=== PATIENT | female | born 1995 | race Caucasian/White ===

== ENCOUNTER 2020-04-28 23:36 | Inpatient (IN) | payer MEDICAID ==
[~2020-04-28] VITALS: Ht 157.5 cm; Wt 47.2 kg
[2020-04-29] MEDS ORDERED: MIDO5TAB29 GT (00:03)
[2020-04-29] MEDS ORDERED: VALP250C3 GT (00:03)
[2020-04-29] MEDS ORDERED: TOPI100T37 GT (00:03)
[2020-04-29] MEDS ORDERED: FAMO-135 GT (00:03)
[2020-04-29] MEDS ORDERED: FLUD.1 GT (00:03)
[2020-04-29] MEDS ORDERED: 0.9% SODIUM CHLORIDE 10 ML SYRINGE IVP PRN (00:45)
[2020-04-29] MEDS ORDERED: ACETAMINOPHEN 325 MG TABLET PO PRN ×2 (00:45→03:15)
[2020-04-29] MEDS ORDERED: ONDANSETRON HCL 4 MG/2 ML VIAL IVP PRN ×3 (00:45→14:00)
[2020-04-29 02:30] LABS: BASOPHILS % (AUTO) 0.4 % (0.0-2.0); EOSINOPHILS % (AUTO) 0.4 % (1.0-6.0); HEMATOCRIT 38.7 % (36-46); HEMOGLOBIN 13.3 g/dL (12.0-16.0); LYMPHOCYTES # (AUTO) 3.5 K/uL (1.0-4.8); LYMPHOCYTES % (AUTO) 43.5 % (22.0-44.0); MEAN CORPUSCULAR HEMOGLOBIN 32.2 pg (26.0-34.0); MEAN CORPUSCULAR HGB CONC 34.4 G/dL (31.0-37.0); MEAN CORPUSCULAR VOLUME 93 fL (80-100); MONOCYTES # (AUTO) 0.6 K/uL (0.1-1.0); MONOCYTES % (AUTO) 6.8 % (2.0-9.0); NEUTROPHILS % (AUTO) 48.9 % (40.0-70.0); PLATELET COUNT (AUTO) 231 K/uL (150-450); RED BLOOD CELL COUNT(AUTO) 4.15 MIL/uL (4.00-5.20)
[2020-04-29 02:43] LABS: PROTHROMBIN TIME 10.6 SEC (9.4-11.6)
[2020-04-29 02:44] LABS: ANION GAP 12 mmol/L (8-16); CALCIUM, TOTAL 9.1 mg/dL (8.8-10.5); CARBON DIOXIDE 23 mmol/L (22-29); CHLORIDE 105 mmol/L (98-107); CREATININE 0.61 mg/dL (0.60-1.30); GLOMERULAR FILTR. RATE CALC > 60 mL/min (>60); GLUCOSE,RANDOM 94 mg/dL (70-110); POTASSIUM 3.8 mmol/L (3.5-5.1); SODIUM SERUM 140 mmol/L (136-145); UREA NITROGEN, BLOOD 14 mg/dL (7-18)
[2020-04-29 02:57] LABS: ALANINE AMINOTRANSFERASE 67 U/L (12-78); ALBUMIN 3.4 g/dL (3.4-5.0); ALKALINE PHOSPHATASE 75 U/L (46-116); ASPARTATE AMINOTRANSFERASE 34 U/L (15-37); BILIRUBIN,TOTAL 0.2 mg/dL (0.1-1.0); CREATINE KINASE, TOTAL ONLY 32 U/L (26-192); HCG,QUANTITATIVE < 1 mIU/mL (0-6); TOTAL PROTEIN, SERUM 7.1 g/dL (6.4-8.2); VALPROIC ACID 87 mcg/mL (50-100)
[2020-04-29 03:02] LABS: B-TYPE NATRIURETIC PEPTIDE 5 pg/mL (0-100)
[2020-04-29] MEDS ORDERED: LORazepam 2 MG/ML VIAL IVP ONE (03:15)
[2020-04-29] MEDS ORDERED: LevETIRAcetam 500 MG in DEXTROSE 5%-WATER 100 ML IV ONE (03:15)
[2020-04-29] MEDS ORDERED: LevETIRAcetam 1,000 MG in DEXTROSE 5%-WATER 100 ML IV ONE (07:00)
[2020-04-29] MEDS ORDERED: DIVALPROEX SODIUM 125 MG DR CAPSULE GT ONE (09:00)
[2020-04-29] MEDS ORDERED: TOPIRAMATE 100 MG TABLET GT ONE (09:00)
[2020-04-29 11:06] LABS: APPEARANCE,URINE CLEAR (CLEAR); BILIRUBIN,URINE NEGATIVE (NEGATIVE); GLUCOSE, URINE (UA) NEGATIVE (NEGATIVE); KETONES,URINE NEGATIVE (NEGATIVE); LEUKOCYTE ESTERASE ,URINE NEGATIVE (NEGATIVE); NITRATE,URINE NEGATIVE (NEGATIVE); OCCULT BLOOD,URINE NEGATIVE (NEGATIVE); PH,URINE 6.5 (5.0-8.0); PROTEIN,URINE NEGATIVE (NEGATIVE)
[2020-04-29 11:40] VITALS: BP 99/69
[2020-04-29] MEDS ORDERED: VALPROIC ACID 250 MG CAPSULE GT SCH (14:00)
[2020-04-29] MEDS ORDERED: ACETAMINOPHEN 325 MG TABLET GT PRN (14:00)
[2020-04-29] MEDS ORDERED: IPRATROPIUM BROMIDE 0.5 MG/2.5 ML NEB SOLUTION NEB PRN (14:00)
[2020-04-29] MEDS ORDERED: BISACODYL 10 MG RECTAL RECTAL SUPPOSITORY PR PRN (14:00)
[2020-04-29] MEDS ORDERED: MAGNESIUM HYDROXIDE SUSPENSION 30 ML UDCUP GT PRN (14:00)
[2020-04-29] MEDS ORDERED: ALBUTEROL SULFATE 2.5 MG/0.5 ML NEB SOLUTION NEB PRN (14:00)
[2020-04-29] MEDS ORDERED: MORPHINE SULFATE 2 MG/ML SYRINGE IVP PRN (14:00)
[2020-04-29] MEDS: FLUDROCORTISONE ACETATE 0.1 MG TABLET GT SCH (15:42)
[2020-04-29] MEDS: FAMOTIDINE 20 MG TABLET GT SCH (15:43)
[2020-04-29] MEDS: TOPIRAMATE 100 MG TABLET GT SCH ×2 (15:44→20:47)
[2020-04-29] MEDS: HEPARIN SODIUM,PORCINE 5,000 UNITS/ML VIAL SQ SCH (15:44)
[2020-04-29] MEDS: MIDODRINE HCL 5 MG TABLET GT SCH ×2 (15:44→20:47)
[2020-04-29 15:46] VITALS: BP 99/65
[2020-04-29 20:42] VITALS: BP 95/62
[2020-04-29] MEDS: VALPROIC ACID 250 MG/5 ML SYRUP UDCUP GT SCH (20:47)
[2020-04-29 23:58] VITALS: BP 113/82
[2020-04-30] MEDS: HEPARIN SODIUM,PORCINE 5,000 UNITS/ML VIAL SQ SCH ×3 (00:51→16:46)
[2020-04-30 05:00] VITALS: BP 115/75
[2020-04-30 07:36] VITALS: BP 110/67
[2020-04-30] MEDS: VALPROIC ACID 250 MG/5 ML SYRUP UDCUP GT SCH ×2 (08:56→20:08)
[2020-04-30] MEDS: FAMOTIDINE 20 MG TABLET GT SCH (08:56)
[2020-04-30] MEDS: FLUDROCORTISONE ACETATE 0.1 MG TABLET GT SCH (08:56)
[2020-04-30] MEDS: MIDODRINE HCL 5 MG TABLET GT SCH ×3 (08:57→20:08)
[2020-04-30] MEDS: TOPIRAMATE 100 MG TABLET GT SCH ×2 (08:57→20:08)
[2020-04-30 11:26] VITALS: BP 107/64
[2020-04-30 14:51] VITALS: BP 98/66
[2020-04-30 20:06] VITALS: BP 98/60
[2020-05-01 00:17] VITALS: BP 103/62
[2020-05-01] MEDS: HEPARIN SODIUM,PORCINE 5,000 UNITS/ML VIAL SQ SCH ×2 (00:20→08:29)
[2020-05-01 05:29] VITALS: BP 95/41
[2020-05-01 07:26] VITALS: BP 99/60
[2020-05-01] MEDS: FAMOTIDINE 20 MG TABLET GT SCH (08:29)
[2020-05-01] MEDS: FLUDROCORTISONE ACETATE 0.1 MG TABLET GT SCH (08:31)
[2020-05-01] MEDS: TOPIRAMATE 100 MG TABLET GT SCH (08:32)
[2020-05-01] MEDS: MIDODRINE HCL 5 MG TABLET GT SCH (08:32)
[2020-05-01] MEDS: VALPROIC ACID 250 MG/5 ML SYRUP UDCUP GT SCH (08:33)
[2020-05-01] MEDS ORDERED: LevETIRAcetam 100 MG/ML 5 ML SOLUTION UDCUP GT SCH (10:15)
[2020-05-01 11:14] VITALS: BP 111/64
[2020-05-01] MEDS ORDERED: HEPA500018 SQ (12:18)
[2020-05-01] MEDS ORDERED: LEVE500T53 PO (12:19)
[2020-05-01] MEDS ORDERED: VALP250C48 PO ×2 (12:20→12:21)
[2020-05-01] MEDS ORDERED: ACET-2247 PO (12:22)
[2020-05-01] MEDS ORDERED: AUD NEB (12:24)
[2020-05-01] MEDS ORDERED: BISA10SU11 PR (12:25)
[2020-05-01] MEDS ORDERED: MOM30 PO (12:27)
[2020-05-01] MEDS ORDERED: IPRNEB NEB (12:27)
[2020-05-02] MEDS ORDERED: VALPROIC ACID 250 MG/5 ML SYRUP UDCUP GT SCH (08:00)
== END 2020-05-01 14:40 | DRG 53 ==
LOC: EMS 23:37 → 5S 04-29 09:38
PROVIDERS: ADMIT Hospitalist; ATTEND Hospitalist
DX: G40.401 Other generalized epilepsy and epileptic syndromes, not intractable, with status epilepticus (principal); E43 Unspecified severe protein-calorie malnutrition; R62.50 Unspecified lack of expected normal physiological development in childhood; Z68.1 Body mass index [BMI] 19.9 or less, adult; R13.10 Dysphagia, unspecified
CPT/HCPCS: 70450; 87081; 93005; 96365; 99291; J0712; J1644; J7060

== ENCOUNTER 2024-03-16 16:30 | Inpatient (IN) | payer OTHER ==
[~2024-03-16] VITALS: Ht 154.9 cm; Wt 60.5 kg
[2024-03-16] MEDS: DOCUSATE SODIUM 100 MG CAPSULE PO SCH (03:19)
[2024-03-16] MEDS: VALPROIC ACID 250 MG/5 ML SOLUTION UDCUP GT SCH (03:19)
[2024-03-16] MEDS: TOPIRAMATE 100 MG TABLET GT SCH (03:19)
[2024-03-16] MEDS: LevETIRAcetam 100 MG/ML 5 ML SOLUTION UDCUP PEG SCH (03:19)
[~2024-03-16 16:30] MED LIST: ACET-2247 GT; DOCU-385 GT; FAMO20 GT; LACT10SO10 GT; LEVE500S10 PEG; MAGN-169 GT; PRAV10TA39 GT; SCOP1PAT12 TD; TOPI100T37 GT; VALP250S23 GT; [UNRECOGNIZED DRUG - CODE] GT
[2024-03-16 17:53] LABS: BASOPHILS % (AUTO) 0.5 % (0.0-2.0); EOSINOPHILS % (AUTO) 0.2 % (1.0-6.0); HEMATOCRIT 41.6 % (36-46); HEMOGLOBIN 13.7 g/dL (12.0-16.0); LYMPHOCYTES # (AUTO) 4.3 K/uL (1.0-4.8); LYMPHOCYTES % (AUTO) 27.9 % (22.0-44.0); MEAN CORPUSCULAR HEMOGLOBIN 30.9 pg (26.0-34.0); MEAN CORPUSCULAR HGB CONC 32.9 G/dL (31.0-37.0); MEAN CORPUSCULAR VOLUME 94 fL (80-100); MONOCYTES # (AUTO) 1.5 K/uL (0.1-1.0); MONOCYTES % (AUTO) 9.4 % (2.0-9.0); NEUTROPHILS # (AUTO) 9.6 K/uL (1.8-7.7); PLATELET COUNT (AUTO) 392 K/uL (150-450); RED BLOOD CELL COUNT(AUTO) 4.44 MIL/uL (4.00-5.20); RED CELL DISTRIBUTION WIDTH 13.5 % (11.5-14.5); WHITE BLOOD COUNT (AUTO) 15.5 K/uL (4.5-11.0)
[2024-03-16 18:03] LABS: ANION GAP 15 mmol/L (8-16); CALCIUM, TOTAL 9.3 mg/dL (8.8-10.5); CARBON DIOXIDE 21 mmol/L (22-29); CHLORIDE 105 mmol/L (98-107); GLOMERULAR FILTR. RATE CALC > 60 mL/min (>60); GLUCOSE,RANDOM 121 mg/dL (70-110); POTASSIUM 3.7 mmol/L (3.5-5.1); SODIUM SERUM 141 mmol/L (136-145); UREA NITROGEN, BLOOD 9 mg/dL (7-18)
[2024-03-16 18:08] LABS: ALANINE AMINOTRANSFERASE 91 U/L (12-78); ALBUMIN 2.8 g/dL (3.4-5.0); ALKALINE PHOSPHATASE 155 U/L (46-116); ASPARTATE AMINOTRANSFERASE 20 U/L (15-37); BILIRUBIN,TOTAL 0.5 mg/dL (0.1-1.0); TOTAL PROTEIN, SERUM 8.2 g/dL (6.4-8.2)
[2024-03-16 18:10] LABS: LIPASE 708 U/L (16-77)
[2024-03-16 18:11] LABS: LACTIC ACID 1.6 mmol/L (0.4-2.0)
[2024-03-16] MEDS: ACETAMINOPHEN 160 MG/5 ML SUSPENSION UDCUP GT ONE (18:33)
[2024-03-16] MEDS ORDERED: BISACODYL 10 MG RECTAL RECTAL SUPPOSITORY PR PRN (20:45)
[2024-03-16] MEDS ORDERED: MAGNESIUM HYDROXIDE SUSPENSION 30 ML UDCUP PO PRN (20:45)
[2024-03-16] MEDS ORDERED: ZOLPIDEM TARTRATE 5 MG TABLET PO PRN (20:45)
[2024-03-16] MEDS ORDERED: ACETAMINOPHEN 325 MG TABLET PO PRN (20:45)
[2024-03-16] MEDS: CefTRIAXone 1 GM/DEXTROSE 50 ML IV ONE (20:48)
[2024-03-16] MEDS: SODIUM CHLORIDE 0.9% 1,500 ML IV ONE (20:48)
[2024-03-16 22:24] LABS: APPEARANCE,URINE CLEAR (CLEAR); BILIRUBIN,URINE NEGATIVE (NEGATIVE); COLOR,URINE YELLOW (YELLOW); GLUCOSE, URINE (UA) NEGATIVE (NEGATIVE); KETONES,URINE NEGATIVE (NEGATIVE); LEUKOCYTE ESTERASE ,URINE NEGATIVE (NEGATIVE); NITRATE,URINE NEGATIVE (NEGATIVE); OCCULT BLOOD,URINE NEGATIVE (NEGATIVE); PH,URINE 7.5 (5.0-8.0); PROTEIN,URINE NEGATIVE (NEGATIVE); UROBILINOGEN,URINE <=1.0 mg/dL (<=1.0)
[2024-03-17] MEDS: HEPARIN SODIUM,PORCINE 5,000 UNITS/ML VIAL SQ SCH (00:35)
[2024-03-17] MEDS: SODIUM CHLORIDE 0.9% 1,000 ML IV ONE (00:35)
[2024-03-17 03:00] VITALS: BP 105/55; PULSE 118; RESP 17; TEMP 98.9
[2024-03-17 07:27] VITALS: BP 127/76; PULSE 117; RESP 18; TEMP 97.7
[2024-03-17 08:06] LABS: BASOPHILS % (AUTO) 0.4 % (0.0-2.0); EOSINOPHILS % (AUTO) 1.2 % (1.0-6.0); HEMATOCRIT 41.1 % (36-46); HEMOGLOBIN 13.5 g/dL (12.0-16.0); LYMPHOCYTES # (AUTO) 3.9 K/uL (1.0-4.8); LYMPHOCYTES % (AUTO) 31.7 % (22.0-44.0); MEAN CORPUSCULAR HEMOGLOBIN 30.7 pg (26.0-34.0); MEAN CORPUSCULAR HGB CONC 32.8 G/dL (31.0-37.0); MEAN CORPUSCULAR VOLUME 94 fL (80-100); MONOCYTES % (AUTO) 7.8 % (2.0-9.0); NEUTROPHILS # (AUTO) 7.2 K/uL (1.8-7.7); NEUTROPHILS % (AUTO) 58.9 % (40.0-70.0); PLATELET COUNT (AUTO) 364 K/uL (150-450); RED CELL DISTRIBUTION WIDTH 13.8 % (11.5-14.5); WHITE BLOOD COUNT (AUTO) 12.2 K/uL (4.5-11.0)
[2024-03-17 08:18] LABS: ANION GAP 14 mmol/L (8-16); CARBON DIOXIDE 21 mmol/L (22-29); CHLORIDE 105 mmol/L (98-107); CREATININE 0.49 mg/dL (0.60-1.30); GLOMERULAR FILTR. RATE CALC > 60 mL/min (>60); GLUCOSE,RANDOM 113 mg/dL (70-110); POTASSIUM 3.6 mmol/L (3.5-5.1); SODIUM SERUM 140 mmol/L (136-145); UREA NITROGEN, BLOOD 9 mg/dL (7-18)
[2024-03-17 08:26] LABS: CALCIUM, TOTAL 9.2 mg/dL (8.8-10.5); LIPASE 605 U/L (16-77)
[2024-03-17] MEDS: LACTULOSE 20 GM/30 ML SOLUTION UDCUP GT SCH (10:16)
[2024-03-17] MEDS: PRAVASTATIN SODIUM 10 MG TABLET GT SCH (10:19)
[2024-03-17] MEDS: PANTOPRAZOLE SODIUM 40 MG DR TABLET PO SCH (10:21)
[2024-03-17 12:00] VITALS: BP 118/70; PULSE 118; RESP 18; TEMP 98
[2024-03-17 15:21] VITALS: BP 114/82; PULSE 102; RESP 18; TEMP 98
[2024-03-17 20:07] VITALS: BP 113/70; PULSE 101; RESP 18; TEMP 98.3
[2024-03-17 23:38] VITALS: BP 117/70; PULSE 100; RESP 19; TEMP 98
[2024-03-18 04:00] VITALS: BP 122/59; PULSE 91; RESP 16; TEMP 97.4
[2024-03-18] MEDS ORDERED: SODIUM CHLORIDE 0.9% 500 ML IV ONE (07:05)
[2024-03-18 07:51] LABS: BASOPHILS % (AUTO) 0.4 % (0.0-2.0); EOSINOPHILS % (AUTO) 1.3 % (1.0-6.0); HEMOGLOBIN 13.2 g/dL (12.0-16.0); LYMPHOCYTES # (AUTO) 3.4 K/uL (1.0-4.8); MEAN CORPUSCULAR HGB CONC 33.1 G/dL (31.0-37.0); MEAN CORPUSCULAR VOLUME 94 fL (80-100); MONOCYTES # (AUTO) 0.8 K/uL (0.1-1.0); MONOCYTES % (AUTO) 7.2 % (2.0-9.0); NEUTROPHILS # (AUTO) 6.2 K/uL (1.8-7.7); NEUTROPHILS % (AUTO) 59.1 % (40.0-70.0); PLATELET COUNT (AUTO) 354 K/uL (150-450); RED BLOOD CELL COUNT(AUTO) 4.27 MIL/uL (4.00-5.20); RED CELL DISTRIBUTION WIDTH 13.3 % (11.5-14.5); WHITE BLOOD COUNT (AUTO) 10.6 K/uL (4.5-11.0)
[2024-03-18 07:54] LABS: ANION GAP 10 mmol/L (8-16); CARBON DIOXIDE 25 mmol/L (22-29); CHLORIDE 106 mmol/L (98-107); CREATININE 0.61 mg/dL (0.60-1.30); GLOMERULAR FILTR. RATE CALC > 60 mL/min (>60); GLUCOSE,RANDOM 104 mg/dL (70-110); POTASSIUM 3.4 mmol/L (3.5-5.1); SODIUM SERUM 141 mmol/L (136-145); UREA NITROGEN, BLOOD 8 mg/dL (7-18)
[2024-03-18 08:23] VITALS: BP 110/65; PULSE 95; RESP 18; TEMP 97.4
[2024-03-18 11:29] VITALS: BP 108/71; PULSE 112; RESP 18; TEMP 97.4
[2024-03-18 15:39] VITALS: BP 117/76; PULSE 114; RESP 18; TEMP 98.1
[2024-03-18] MEDS: ONDANSETRON HCL 4 MG/2 ML VIAL IVP PRN (18:55)
[2024-03-18 19:32] VITALS: BP 105/84; PULSE 119; RESP 18; TEMP 97.8
[2024-03-18] MEDS: CARVEDILOL 3.125 MG TABLET PEG SCH (20:12)
[2024-03-18 23:47] VITALS: BP 121/97; PULSE 109; RESP 19; TEMP 97.5
[2024-03-19 04:42] VITALS: BP 100/64; PULSE 120; RESP 19; TEMP 98
[2024-03-19 07:44] VITALS: BP 119/74; PULSE 130; RESP 18; TEMP 98
[2024-03-19 07:52] LABS: HEMATOCRIT 44.3 % (36-46); HEMOGLOBIN 14.9 g/dL (12.0-16.0); MEAN CORPUSCULAR HEMOGLOBIN 30.9 pg (26.0-34.0); MEAN CORPUSCULAR HGB CONC 33.5 G/dL (31.0-37.0); MEAN CORPUSCULAR VOLUME 92 fL (80-100); PLATELET COUNT (AUTO) 368 K/uL (150-450); RED BLOOD CELL COUNT(AUTO) 4.81 MIL/uL (4.00-5.20); RED CELL DISTRIBUTION WIDTH 13.5 % (11.5-14.5); WHITE BLOOD COUNT (AUTO) 23.4 K/uL (4.5-11.0)
[2024-03-19 08:03] LABS: BAND NEUTROPHILS % (MANUAL) 0 % (0-5)
[2024-03-19 08:15] LABS: ANION GAP 13 mmol/L (8-16); CALCIUM, TOTAL 9.4 mg/dL (8.8-10.5); CARBON DIOXIDE 23 mmol/L (22-29); CHLORIDE 104 mmol/L (98-107); CREATININE 0.66 mg/dL (0.60-1.30); GLOMERULAR FILTR. RATE CALC > 60 mL/min (>60); GLUCOSE,RANDOM 129 mg/dL (70-110); POTASSIUM 3.9 mmol/L (3.5-5.1); SODIUM SERUM 140 mmol/L (136-145); UREA NITROGEN, BLOOD 13 mg/dL (7-18)
[2024-03-19 10:11] LABS: LYMPHOCYTES % (MANUAL) 9 % (22-44); MONOCYTES % (MANUAL) 7 % (2-9); SEGMENTED NEUTROPHILS % 84 % (40-70); TOTAL CELLS COUNTED 100
[2024-03-19 11:31] VITALS: BP 100/61; PULSE 119; RESP 19; TEMP 97.3
[2024-03-19 15:45] VITALS: BP 108/71; PULSE 120; RESP 16; TEMP 97.2
[2024-03-19 18:23] VITALS: BP 139/70; PULSE 140; RESP 16
[2024-03-19] MEDS: LORazepam 2 MG/ML VIAL IVP PRN (18:27)
[2024-03-19 20:00] VITALS: BP 124/76; PULSE 138; RESP 18; TEMP 98.6
[2024-03-20] VITALS: BP 118/8; PULSE 126; RESP 16; TEMP 98.2
[2024-03-20 04:03] VITALS: BP 101/67; PULSE 128; RESP 18; TEMP 98.8
[2024-03-20 06:31] LABS: BASOPHILS % (AUTO) 0.2 % (0.0-2.0); EOSINOPHILS % (AUTO) 0.3 % (1.0-6.0); HEMATOCRIT 44.6 % (36-46); HEMOGLOBIN 14.8 g/dL (12.0-16.0); LYMPHOCYTES # (AUTO) 1.7 K/uL (1.0-4.8); LYMPHOCYTES % (AUTO) 6.2 % (22.0-44.0); MEAN CORPUSCULAR HGB CONC 33.2 G/dL (31.0-37.0); MEAN CORPUSCULAR VOLUME 94 fL (80-100); MONOCYTES # (AUTO) 1.6 K/uL (0.1-1.0); MONOCYTES % (AUTO) 5.7 % (2.0-9.0); NEUTROPHILS # (AUTO) 24.3 K/uL (1.8-7.7); PLATELET COUNT (AUTO) 317 K/uL (150-450); RED BLOOD CELL COUNT(AUTO) 4.77 MIL/uL (4.00-5.20); RED CELL DISTRIBUTION WIDTH 13.4 % (11.5-14.5); WHITE BLOOD COUNT (AUTO) 27.8 K/uL (4.5-11.0)
[2024-03-20 06:45] LABS: ANION GAP 10 mmol/L (8-16); CALCIUM, TOTAL 9.4 mg/dL (8.8-10.5); CARBON DIOXIDE 27 mmol/L (22-29); CHLORIDE 103 mmol/L (98-107); CREATININE 0.84 mg/dL (0.60-1.30); GLOMERULAR FILTR. RATE CALC > 60 mL/min (>60); GLUCOSE,RANDOM 174 mg/dL (70-110); SODIUM SERUM 140 mmol/L (136-145); UREA NITROGEN, BLOOD 21 mg/dL (7-18)
[2024-03-20 07:05] LABS: LIPASE 2493 U/L (16-77)
[2024-03-20 09:09] VITALS: BP 115/76; PULSE 150
[2024-03-20 09:44] LABS: NEUTROPHILS % (AUTO) 87.6 % (40.0-70.0)
[2024-03-20] MEDS: SODIUM CHLORIDE 0.9% 1,000 ML IV SCH (11:41)
[2024-03-20 12:28] VITALS: BP 118/74; PULSE 134; RESP 18; TEMP 98.6
[2024-03-20 15:41] LABS: BILIRUBIN,DIRECT 2.2 mg/dL (0.00-0.20); BILIRUBIN,TOTAL 3.1 mg/dL (0.1-1.0); TOTAL PROTEIN, SERUM 8.1 g/dL (6.4-8.2)
[2024-03-20 16:33] VITALS: BP 122/72; PULSE 139; RESP 18; TEMP 99.1
[2024-03-20] MEDS: MetroNIDAZOLE 500 MG TABLET GT SCH (16:45)
[2024-03-20] MEDS: LEVOFLOXACIN 750 MG/D5% WATER 150 ML IV SCH (16:45)
[2024-03-20 21:25] VITALS: BP 121/72; PULSE 130; RESP 18; TEMP 99.2
[2024-03-21] VITALS (7 sets, daily range): BP systolic 96–125; BP diastolic 64–77; PULSE 103–125; RESP 16–18; TEMP 97.3–99.6
[2024-03-21 06:09] LABS: BASOPHILS % (AUTO) 0.4 % (0.0-2.0); EOSINOPHILS % (AUTO) 0.3 % (1.0-6.0); HEMATOCRIT 38.3 % (36-46); HEMOGLOBIN 12.7 g/dL (12.0-16.0); LYMPHOCYTES # (AUTO) 2.8 K/uL (1.0-4.8); LYMPHOCYTES % (AUTO) 15.1 % (22.0-44.0); MEAN CORPUSCULAR HEMOGLOBIN 30.9 pg (26.0-34.0); MEAN CORPUSCULAR VOLUME 93 fL (80-100); MONOCYTES # (AUTO) 1.3 K/uL (0.1-1.0); MONOCYTES % (AUTO) 7.1 % (2.0-9.0); NEUTROPHILS % (AUTO) 77.1 % (40.0-70.0); PLATELET COUNT (AUTO) 253 K/uL (150-450); RED CELL DISTRIBUTION WIDTH 13.5 % (11.5-14.5); WHITE BLOOD COUNT (AUTO) 18.2 K/uL (4.5-11.0)
[2024-03-21 06:23] LABS: ALANINE AMINOTRANSFERASE 143 U/L (12-78); ALBUMIN 2.3 g/dL (3.4-5.0); ALKALINE PHOSPHATASE 180 U/L (46-116); ANION GAP 11 mmol/L (8-16); ASPARTATE AMINOTRANSFERASE 93 U/L (15-37); BILIRUBIN,TOTAL 1.7 mg/dL (0.1-1.0); CALCIUM, TOTAL 8.7 mg/dL (8.8-10.5); CARBON DIOXIDE 25 mmol/L (22-29); CHLORIDE 105 mmol/L (98-107); GLOMERULAR FILTR. RATE CALC > 60 mL/min (>60); GLUCOSE,RANDOM 124 mg/dL (70-110); POTASSIUM 3.5 mmol/L (3.5-5.1); SODIUM SERUM 141 mmol/L (136-145); TOTAL PROTEIN, SERUM 6.9 g/dL (6.4-8.2); UREA NITROGEN, BLOOD 20 mg/dL (7-18)
[2024-03-22 04:00] VITALS: BP 115/79; PULSE 97; RESP 18; TEMP 97.6
[2024-03-22 07:53] VITALS: BP 100/64; PULSE 84; RESP 18; TEMP 98
[2024-03-22 07:55] LABS: ALANINE AMINOTRANSFERASE 98 U/L (12-78); ALBUMIN 2.1 g/dL (3.4-5.0); ALKALINE PHOSPHATASE 170 U/L (46-116); ANION GAP 14 mmol/L (8-16); ASPARTATE AMINOTRANSFERASE 42 U/L (15-37); BILIRUBIN,TOTAL 0.8 mg/dL (0.1-1.0); CALCIUM, TOTAL 8.2 mg/dL (8.8-10.5); CARBON DIOXIDE 18 mmol/L (22-29); CHLORIDE 110 mmol/L (98-107); CREATININE 0.42 mg/dL (0.60-1.30); GLOMERULAR FILTR. RATE CALC > 60 mL/min (>60); GLUCOSE,RANDOM 77 mg/dL (70-110); POTASSIUM 3.6 mmol/L (3.5-5.1); SODIUM SERUM 142 mmol/L (136-145); TOTAL PROTEIN, SERUM 6.4 g/dL (6.4-8.2); UREA NITROGEN, BLOOD 16 mg/dL (7-18)
[2024-03-22 08:07] LABS: LIPASE 641 U/L (16-77)
[2024-03-22] MEDS: DOCUSATE SODIUM 100 MG/10 ML LIQUID UDCUP GT PRN (08:50)
[2024-03-22 11:26] VITALS: BP 94/56; PULSE 92; RESP 18; TEMP 98
[2024-03-22 12:20] LABS: BASOPHILS % (AUTO) 0.4 % (0.0-2.0); EOSINOPHILS % (AUTO) 1.3 % (1.0-6.0); HEMATOCRIT 40.6 % (36-46); HEMOGLOBIN 12.8 g/dL (12.0-16.0); LYMPHOCYTES % (AUTO) 13.2 % (22.0-44.0); MEAN CORPUSCULAR HEMOGLOBIN 30.1 pg (26.0-34.0); MEAN CORPUSCULAR HGB CONC 31.7 G/dL (31.0-37.0); MEAN CORPUSCULAR VOLUME 95 fL (80-100); MONOCYTES # (AUTO) 0.9 K/uL (0.1-1.0); MONOCYTES % (AUTO) 5.7 % (2.0-9.0); NEUTROPHILS # (AUTO) 12.2 K/uL (1.8-7.7); NEUTROPHILS % (AUTO) 79.4 % (40.0-70.0); PLATELET COUNT (AUTO) 276 K/uL (150-450); RED BLOOD CELL COUNT(AUTO) 4.26 MIL/uL (4.00-5.20); RED CELL DISTRIBUTION WIDTH 13.8 % (11.5-14.5); WHITE BLOOD COUNT (AUTO) 15.4 K/uL (4.5-11.0)
[2024-03-22 17:46] VITALS: BP 104/71; PULSE 71; RESP 21; TEMP 96.7
[2024-03-22 20:00] VITALS: BP 105/69; PULSE 114; RESP 18; TEMP 98.4
[2024-03-23] VITALS: BP 95/67; PULSE 95; RESP 19; TEMP 98.3
[2024-03-23 04:00] VITALS: BP 94/57; PULSE 99; RESP 18; TEMP 98.3
[2024-03-23 07:54] LABS: BASOPHILS % (AUTO) 0.5 % (0.0-2.0); EOSINOPHILS % (AUTO) 1.8 % (1.0-6.0); HEMATOCRIT 40.7 % (36-46); HEMOGLOBIN 13.3 g/dL (12.0-16.0); LYMPHOCYTES # (AUTO) 2.8 K/uL (1.0-4.8); LYMPHOCYTES % (AUTO) 23.1 % (22.0-44.0); MEAN CORPUSCULAR HEMOGLOBIN 30.9 pg (26.0-34.0); MEAN CORPUSCULAR HGB CONC 32.6 G/dL (31.0-37.0); MEAN CORPUSCULAR VOLUME 95 fL (80-100); MONOCYTES # (AUTO) 0.8 K/uL (0.1-1.0); MONOCYTES % (AUTO) 6.3 % (2.0-9.0); NEUTROPHILS # (AUTO) 8.3 K/uL (1.8-7.7); NEUTROPHILS % (AUTO) 68.3 % (40.0-70.0); RED BLOOD CELL COUNT(AUTO) 4.28 MIL/uL (4.00-5.20); WHITE BLOOD COUNT (AUTO) 12.1 K/uL (4.5-11.0)
[2024-03-23 07:57] LABS: ALANINE AMINOTRANSFERASE 84 U/L (12-78); ALBUMIN 2.5 g/dL (3.4-5.0); ALKALINE PHOSPHATASE 224 U/L (46-116); ANION GAP 15 mmol/L (8-16); ASPARTATE AMINOTRANSFERASE 38 U/L (15-37); BILIRUBIN,TOTAL 0.7 mg/dL (0.1-1.0); CARBON DIOXIDE 19 mmol/L (22-29); CHLORIDE 107 mmol/L (98-107); CREATININE 0.42 mg/dL (0.60-1.30); GLOMERULAR FILTR. RATE CALC > 60 mL/min (>60); GLUCOSE,RANDOM 80 mg/dL (70-110); POTASSIUM 3.1 mmol/L (3.5-5.1); SODIUM SERUM 141 mmol/L (136-145); TOTAL PROTEIN, SERUM 7.6 g/dL (6.4-8.2); UREA NITROGEN, BLOOD 5 mg/dL (7-18)
[2024-03-23 08:16] LABS: LIPASE 623 U/L (16-77)
[2024-03-23 08:17] VITALS: BP 108/79; PULSE 86; RESP 14; TEMP 97.6
[2024-03-23 08:37] LABS: PLATELET COUNT (AUTO) 228 K/uL (150-450)
[2024-03-23 11:30] VITALS: BP 103/61; PULSE 89; RESP 16; TEMP 98.2
[2024-03-23 20:02] VITALS: BP 104/69; PULSE 79; RESP 17; TEMP 97.9
[2024-03-24] VITALS (7 sets, daily range): BP systolic 90–124; BP diastolic 48–81; PULSE 86–99; RESP 18–19; TEMP 97.6–98.2
[2024-03-24] MEDS: POTASSIUM CHLORIDE 20 MEQ ER TABLET PO PRN (01:47)
[2024-03-24 07:26] LABS: ALANINE AMINOTRANSFERASE 61 U/L (12-78); ALBUMIN 2.4 g/dL (3.4-5.0); ALKALINE PHOSPHATASE 176 U/L (46-116); ANION GAP 13 mmol/L (8-16); ASPARTATE AMINOTRANSFERASE 28 U/L (15-37); BILIRUBIN,TOTAL 0.5 mg/dL (0.1-1.0); CALCIUM, TOTAL 8.4 mg/dL (8.8-10.5); CARBON DIOXIDE 22 mmol/L (22-29); CHLORIDE 107 mmol/L (98-107); CREATININE 0.44 mg/dL (0.60-1.30); GLOMERULAR FILTR. RATE CALC > 60 mL/min (>60); GLUCOSE,RANDOM 87 mg/dL (70-110); POTASSIUM 3.2 mmol/L (3.5-5.1); SODIUM SERUM 142 mmol/L (136-145); TOTAL PROTEIN, SERUM 6.6 g/dL (6.4-8.2); UREA NITROGEN, BLOOD 2 mg/dL (7-18)
[2024-03-24 08:33] LABS: LIPASE 612 U/L (16-77)
[2024-03-24] MEDS: POTASSIUM CHL 10 MEQ/WATER 50 ML IV PRN (17:18)
[2024-03-25 04:10] VITALS: BP 96/53; PULSE 96; RESP 19; TEMP 97.6
[2024-03-25 09:04] VITALS: BP 108/56; PULSE 78; RESP 20; TEMP 98
[2024-03-25 10:58] LABS: ALANINE AMINOTRANSFERASE 52 U/L (12-78); ALBUMIN 2.3 g/dL (3.4-5.0); ALKALINE PHOSPHATASE 150 U/L (46-116); ANION GAP 13 mmol/L (8-16); ASPARTATE AMINOTRANSFERASE 44 U/L (15-37); BILIRUBIN,TOTAL 0.6 mg/dL (0.1-1.0); CALCIUM, TOTAL 8.7 mg/dL (8.8-10.5); CARBON DIOXIDE 21 mmol/L (22-29); CHLORIDE 105 mmol/L (98-107); CREATININE 0.47 mg/dL (0.60-1.30); GLOMERULAR FILTR. RATE CALC > 60 mL/min (>60); GLUCOSE,RANDOM 93 mg/dL (70-110); SODIUM SERUM 139 mmol/L (136-145); TOTAL PROTEIN, SERUM 6.5 g/dL (6.4-8.2); UREA NITROGEN, BLOOD 2 mg/dL (7-18)
[2024-03-25 11:11] LABS: LIPASE 823 U/L (16-77)
[2024-03-25 11:34] VITALS: BP 103/57; PULSE 90; RESP 18; TEMP 97.9
[2024-03-25 12:02] LABS: EOSINOPHILS % (AUTO) 2.1 % (1.0-6.0); HEMATOCRIT 34.7 % (36-46); HEMOGLOBIN 11.5 g/dL (12.0-16.0); LYMPHOCYTES # (AUTO) 3.7 K/uL (1.0-4.8); LYMPHOCYTES % (AUTO) 45.5 % (22.0-44.0); MEAN CORPUSCULAR HEMOGLOBIN 30.7 pg (26.0-34.0); MEAN CORPUSCULAR HGB CONC 33.1 G/dL (31.0-37.0); MEAN CORPUSCULAR VOLUME 93 fL (80-100); MONOCYTES # (AUTO) 0.5 K/uL (0.1-1.0); MONOCYTES % (AUTO) 6.5 % (2.0-9.0); NEUTROPHILS # (AUTO) 3.7 K/uL (1.8-7.7); NEUTROPHILS % (AUTO) 44.9 % (40.0-70.0); PLATELET COUNT (AUTO) 307 K/uL (150-450); RED BLOOD CELL COUNT(AUTO) 3.73 MIL/uL (4.00-5.20); RED CELL DISTRIBUTION WIDTH 13.6 % (11.5-14.5); WHITE BLOOD COUNT (AUTO) 8.2 K/uL (4.5-11.0)
[2024-03-25 16:19] VITALS: BP 107/59; PULSE 62; RESP 20; TEMP 98
[2024-03-25 20:10] VITALS: BP 122/59; PULSE 94; RESP 18; TEMP 97.9
[2024-03-26] VITALS (7 sets, daily range): BP systolic 88–115; BP diastolic 50–77; PULSE 58–105; RESP 17–18; TEMP 97.6–98
[2024-03-27 00:40] VITALS: BP 110/66; PULSE 83; RESP 18; TEMP 96.7
[2024-03-27 05:35] VITALS: BP 101/63; PULSE 102; RESP 18; TEMP 98.1
[2024-03-27 07:41] VITALS: BP 111/71; PULSE 81; RESP 16; TEMP 97.6
[2024-03-27] MEDS: DEXTROSE 5%-0.45% SODIUM CHL 1,000 ML IV SCH (12:05)
[2024-03-27 12:10] VITALS: BP 106/69; PULSE 74; RESP 17; TEMP 97.6
[2024-03-27 15:49] VITALS: BP 99/58; PULSE 62; RESP 17; TEMP 97.7
[2024-03-27 19:37] VITALS: BP 107/61; PULSE 72; RESP 17; TEMP 97.9
[2024-03-27 23:56] LABS: GLUCOMETER DEV NAME(LOC) 5N.1D; GLUCOSE,POINT OF CARE 107 MG/DL (70-110)
[2024-03-28 00:01] VITALS: BP 105/66; PULSE 77; RESP 17; TEMP 97.8
[2024-03-28 04:58] VITALS: BP 104/60; PULSE 62; RESP 17; TEMP 97.9
[2024-03-28 06:46] LABS: ALANINE AMINOTRANSFERASE 39 U/L (12-78); ALBUMIN 2.6 g/dL (3.4-5.0); ALKALINE PHOSPHATASE 119 U/L (46-116); ANION GAP 11 mmol/L (8-16); ASPARTATE AMINOTRANSFERASE 20 U/L (15-37); BILIRUBIN,TOTAL 0.4 mg/dL (0.1-1.0); CALCIUM, TOTAL 9.1 mg/dL (8.8-10.5); CARBON DIOXIDE 24 mmol/L (22-29); CHLORIDE 107 mmol/L (98-107); CREATININE 0.56 mg/dL (0.60-1.30); GLOMERULAR FILTR. RATE CALC > 60 mL/min (>60); GLUCOSE,RANDOM 109 mg/dL (70-110); SODIUM SERUM 142 mmol/L (136-145); TOTAL PROTEIN, SERUM 6.7 g/dL (6.4-8.2)
[2024-03-28 07:32] VITALS: BP 105/69; PULSE 72; RESP 16; TEMP 97.1
[2024-03-28 07:42] LABS: UREA NITROGEN, BLOOD 1 mg/dL (7-18)
[2024-03-28 07:46] LABS: LIPASE 393 U/L (16-77)
[2024-03-28] MEDS ORDERED: NICOTINE 14 MG/24 HOUR PATCH TD SCH (09:00)
[2024-03-28] MEDS ORDERED: SODIUM CHLORIDE 0.9% 250 ML IV ONE (09:17)
[2024-03-28 15:37] VITALS: BP 94/62; PULSE 70; RESP 16; TEMP 97.3
[2024-03-28 20:06] VITALS: BP 100/60; PULSE 70; RESP 17; TEMP 97.5
[2024-03-28] MEDS ORDERED: SODIUM CL IRRIG SOLN BOTTLE 0 ML IRRIG ONE (20:20)
[2024-03-29 05:16] VITALS: BP 110/62; PULSE 71; RESP 18; TEMP 97.7
[2024-03-29 08:00] VITALS: BP 105/42; PULSE 60; RESP 18; TEMP 97.5
[2024-03-29 12:00] VITALS: BP 96/59; PULSE 83; RESP 18; TEMP 97.5
[2024-03-29 16:00] VITALS: BP 103/72; PULSE 74; RESP 18; TEMP 97.1
[2024-03-29 19:29] VITALS: BP 101/68; PULSE 78; RESP 18; TEMP 97.3
[2024-03-29 20:06] LABS: GLUCOMETER DEV NAME(LOC) 5N.1D; GLUCOSE,POINT OF CARE 137 MG/DL (70-110)
[2024-03-29 23:28] VITALS: BP 111/74; PULSE 94; RESP 18; TEMP 97.7
[2024-03-30 03:59] VITALS: BP 109/72; PULSE 93; RESP 18; TEMP 97.7
[2024-03-30 07:57] LABS: BASOPHILS % (AUTO) 0.3 % (0.0-2.0); EOSINOPHILS % (AUTO) 0.8 % (1.0-6.0); HEMATOCRIT 44.3 % (36-46); HEMOGLOBIN 14.8 g/dL (12.0-16.0); LYMPHOCYTES # (AUTO) 3.7 K/uL (1.0-4.8); LYMPHOCYTES % (AUTO) 38.4 % (22.0-44.0); MEAN CORPUSCULAR HEMOGLOBIN 31.5 pg (26.0-34.0); MEAN CORPUSCULAR HGB CONC 33.3 G/dL (31.0-37.0); MEAN CORPUSCULAR VOLUME 95 fL (80-100); MONOCYTES # (AUTO) 1.1 K/uL (0.1-1.0); MONOCYTES % (AUTO) 11.3 % (2.0-9.0); NEUTROPHILS # (AUTO) 4.7 K/uL (1.8-7.7); NEUTROPHILS % (AUTO) 49.2 % (40.0-70.0); PLATELET COUNT (AUTO) 342 K/uL (150-450); RED BLOOD CELL COUNT(AUTO) 4.69 MIL/uL (4.00-5.20); RED CELL DISTRIBUTION WIDTH 14.6 % (11.5-14.5); WHITE BLOOD COUNT (AUTO) 9.6 K/uL (4.5-11.0)
[2024-03-30 08:12] LABS: ANION GAP 14 mmol/L (8-16); CALCIUM, TOTAL 9.1 mg/dL (8.8-10.5); CARBON DIOXIDE 20 mmol/L (22-29); CHLORIDE 106 mmol/L (98-107); CREATININE 0.47 mg/dL (0.60-1.30); GLOMERULAR FILTR. RATE CALC > 60 mL/min (>60); GLUCOSE,RANDOM 105 mg/dL (70-110); POTASSIUM 3.6 mmol/L (3.5-5.1); SODIUM SERUM 140 mmol/L (136-145)
[2024-03-30 08:24] LABS: UREA NITROGEN, BLOOD 1 mg/dL (7-18)
[2024-03-30 08:39] VITALS: BP 104/56; PULSE 76; RESP 19; TEMP 98
[2024-03-30] MEDS: CARVEDILOL 3.125 MG TABLET PEG SCH (09:00)
[2024-03-30 12:21] VITALS: BP 97/54; PULSE 96; RESP 19; TEMP 97.9
[2024-03-30 15:22] VITALS: BP 94/63; PULSE 97; RESP 20; TEMP 97.5
[2024-03-30 20:14] VITALS: BP 113/74; PULSE 95; RESP 18; TEMP 97.5
[2024-03-30 23:41] VITALS: BP 99/58; PULSE 92; RESP 18; TEMP 97.6
[2024-03-31 06:57] LABS: ANION GAP 11 mmol/L (8-16); CALCIUM, TOTAL 9.2 mg/dL (8.8-10.5); CARBON DIOXIDE 21 mmol/L (22-29); CHLORIDE 104 mmol/L (98-107); CREATININE 0.47 mg/dL (0.60-1.30); GLOMERULAR FILTR. RATE CALC > 60 mL/min (>60); GLUCOSE,RANDOM 101 mg/dL (70-110); POTASSIUM 4.1 mmol/L (3.5-5.1); SODIUM SERUM 136 mmol/L (136-145); UREA NITROGEN, BLOOD 1 mg/dL (7-18)
[2024-03-31 08:25] VITALS: BP 100/61; PULSE 83; RESP 18; TEMP 98
[2024-03-31 12:13] VITALS: BP 112/63; PULSE 97; RESP 16; TEMP 97.6
[2024-03-31] MEDS: SODIUM CHLORIDE 0.9% 1,000 ML IV ONE (12:53)
[2024-03-31 16:13] VITALS: BP 110/76; PULSE 99; RESP 16; TEMP 97.6
[2024-03-31 18:33] VITALS: PULSE 89; RESP 17; TEMP 97.6
[2024-03-31 19:37] VITALS: BP 107/60; PULSE 94; RESP 18; TEMP 97.9
[2024-04-01 00:24] VITALS: BP 121/72; PULSE 102; RESP 18; TEMP 97.4
[2024-04-01 04:56] VITALS: BP 104/61; PULSE 92; RESP 17; TEMP 97.4
[2024-04-01 06:57] LABS: ANION GAP 9 mmol/L (8-16); CALCIUM, TOTAL 8.9 mg/dL (8.8-10.5); CARBON DIOXIDE 25 mmol/L (22-29); CHLORIDE 106 mmol/L (98-107); CREATININE 0.46 mg/dL (0.60-1.30); GLOMERULAR FILTR. RATE CALC > 60 mL/min (>60); GLUCOSE,RANDOM 99 mg/dL (70-110); LIPASE 234 U/L (16-77); SODIUM SERUM 140 mmol/L (136-145); UREA NITROGEN, BLOOD 2 mg/dL (7-18)
[2024-04-01 07:22] VITALS: BP 108/61; PULSE 94; RESP 16; TEMP 97.5
[2024-04-01] MEDS: HYDROCODONE/ACETAMINOPHEN 5-325 MG TABLET PO PRN (08:36)
[2024-04-01] MEDS: MORPHINE SULFATE 2 MG/ML SYRINGE IVP PRN (09:56)
[2024-04-01 11:33] VITALS: BP 116/55; PULSE 91; RESP 16; TEMP 98
[2024-04-01 15:27] VITALS: BP 123/71; PULSE 97; RESP 16; TEMP 98.1
== END 2024-04-01 18:45 | disposition home or self-care (01) | DRG 282 ==
LOC: EMS 16:32 → 6S 20:30 → AHU 22:23 → 5S 22:32
PROVIDERS: ADMIT Internal Medicine; ATTEND Internal Medicine
PROC: 05HC33Z Insertion of Infusion Device into Left Basilic Vein, Percutaneous Approach (ICD-10-PCS; principal; 2024-03-17)
PROC: B54NZZA Ultrasonography of Left Upper Extremity Veins, Guidance (ICD-10-PCS; 2024-03-17)
DX: K85.90 Acute pancreatitis without necrosis or infection, unspecified (principal); A41.9 Sepsis, unspecified organism; J90 Pleural effusion, not elsewhere classified; R13.10 Dysphagia, unspecified; Z22.322 Carrier or suspected carrier of Methicillin resistant Staphylococcus aureus; N20.0 Calculus of kidney; G40.909 Epilepsy, unspecified, not intractable, without status epilepticus; J98.11 Atelectasis; E78.5 Hyperlipidemia, unspecified; R21 Rash and other nonspecific skin eruption; Z79.899 Other long term (current) drug therapy
CPT/HCPCS: 36245; 36569; 71045; 71250; 74176; 76937; 80048; 80053; 80076; 81003; 82962; 83605; 83690; 84132; 84145; 84443; 85025; 85379; 87040; 87081; 93005; 93306; 93970; 99285; G0378; J0696; J1644; J1956; J2060; J2270; J2405; J3480; J7030; J7040; J7050; 36415-L1; 36415-TC

== ENCOUNTER → 2025-09-21 | Emergency (ER) | payer OTHER ==
[~2025-09-21] VITALS: Ht 147.3 cm; Wt 54.4 kg
[~2025-09-21] MED LIST changes: +AMOX400S55 PEG; -LEVE500S10 PEG; +LEVE500S33 PEG; +PRAV10TA37 GT; -PRAV10TA39 GT; +TOPI-258 GT; -TOPI100T37 GT
[2025-09-21 16:03] VITALS: TEMP 98.1
[2025-09-21 18:00] VITALS: BP 128/66; PULSE 99; RESP 18; O2SAT 99
== END | disposition still patient (30) ==
LOC: EMS 15:14
DX: S50.01XA Contusion of right elbow, initial encounter (principal); Z98.890 Other specified postprocedural states; Z79.899 Other long term (current) drug therapy; W19.XXXA Unspecified fall, initial encounter; Y93.89 Activity, other specified; Y92.89 Other specified places as the place of occurrence of the external cause; Y99.8 Other external cause status
CPT/HCPCS: 99283